=== PATIENT | male | born 1985 | race African-American/Black ===

== ENCOUNTER 2023-04-29 09:30 | Emergency (ER) | payer SELFPAY ==
[2023-04-29 09:48] VITALS: BP 111/77; PULSE 70; RESP 16; TEMP 37.3; O2SAT 100
--- NOTE | 2023-04-29 09:59 | ED.URI ---
HPI - URI/Sore Throat General Chief Complaint: Upper Respiratory Infection Stated Complaint: cough,sore throat,bady aches Time Seen by Provider: 04/29/23 09:59 History of Present Illness HPI Narrative: 37-year-old male presented for complaint of sore throat body aches/back ache for about 3 days. Endorses painful swallow, Started with swollen left gland today. Taking NyQuil for symptoms. Denies known sick contacts. Denies shortness of breath, wheezing, lethargy, nausea vomiting, fevers or chills. Related Data Allergies Allergy/AdvReac Type Severity Reaction Status Date / Time No Known Allergies Allergy Mild Verified 04/29/23 09:40 Review of Systems Review of Systems: CONSTITUTIONAL: Denies body aches, fever, chills, or sweats. EYES: Denies visual changes, redness, or discharge. ENT: Reports sore throat, gland swelling Denies rhinorrhea, congestion, or otalgia. CARDIOVASCULAR: Denies chest pain, palpitations, or edema. RESPIRATORY: Denies dyspnea. GASTROINTESTINAL: Denies abdominal pain, nausea, vomiting, or diarrhea. SKIN: Denies rash, itching, or wounds. MUSCULOSKELETAL: Denies back pain, joint pain, or myalgia. NEUROLOGIC: Denies headache PMFSH Past Medical History Medical History (Updated 04/29/23 @ 10:11 by Edyta Eisenberg APRN) Tinnitus, right Surgical History Surgical History (Updated 04/29/23 @ 10:11 by Edyta Eisenberg APRN) History of nephrectomy Social History Social History (Updated 04/29/23 @ 10:11 by Edyta Eisenberg APRN) Smoking status: Current every day smoker Exam Narrative: GENERAL: mildly Ill-appearing, no acute distress. EYES: conjunctivae clear ENT: Mucous membranes moist. TMs pearly leslie with normal light reflex bilaterally; no tragal tenderness. Oropharynx severely erythematous Tonsils enlarged 2+ with exudate. No drooling, no hoarseness, no trismus, uvula midline. No tripod positioning, hot potato voice, or soft palate swelling. NECK: Supple. Left anterior cervical lymphadenopathy CHEST: Clear to auscultation, breath sounds equal. No respiratory distress, speaks in full sentences. HEART: Regular rate and rhythm. No murmur heard. SKIN: Warm, dry, no rash. NEURO: Alert and oriented x3. Course Course Emergency Course: Patient is aware of diagnosis, understands and agrees to treatment plan. Anticipatory guidance given. Patient agrees to follow-up as directed and is aware of reasons to seek care at the emergency department. Portions of this record may have been created with voice recognition software Level of Care: Express Care Visit Vital Signs Vital signs: Vital Signs Temperature 99.1 F 04/29/23 09:48 Pulse Rate 70 04/29/23 09:48 Respiratory Rate 16 04/29/23 09:48 Blood Pressure 111/77 04/29/23 09:48 Pulse Oximetry 100 04/29/23 09:48 Oxygen Delivery Room Air 04/29/23 09:48 Temperature 99.1 F 04/29/23 09:48 Pulse Rate 70 04/29/23 09:48 Respiratory Rate 16 04/29/23 09:48 Blood Pressure 111/77 04/29/23 09:48 Pulse Oximetry 100 04/29/23 09:48 Oxygen Delivery Room Air 04/29/23 09:48 MDM - URI/Sore Throat MDM Narrative Medical decision making narrative: POS strep result reviewed with pt. Advise supportive treatments. Patient is appropriate for outpatient treatment and follow-up. Differential Diagnosis Differential diagnosis: Likely upper respiratory infection, viral infection and pharyngitis Lab Data Labs: Strep Screen Positive Group A Strep *(Reference Range: Negative)* Discharge Plan Discharge Clinical Impression: Strep pharyngitis Patient Disposition: Home, Self-Care Condition: Stable Instructions: Antibiotic Form, Strep Throat (ED) Additional Instructions: - Take the antibiotic as directed. Fever and sore throat typically resolve within one to three days. Most patients can return to work, after 12 to 24 hours of an
== END 2023-04-29 10:10 | disposition home or self-care (01) ==
PROVIDERS: Emergency Provider Nurse Practitioner Family
DX: J02.0 Streptococcal pharyngitis (principal); Z20.822 Contact with and (suspected) exposure to COVID-19; Z90.5 Acquired absence of kidney; F17.200 Nicotine dependence, unspecified, uncomplicated
CPT/HCPCS: 87426; 87804; 87880; 99213; C9803; G0463